=== PATIENT | female | born 1955 | race Caucasian/White ===

== ENCOUNTER 2016-07-10 18:08 | Emergency (ER) | payer MEDICAID, OTHER ==
[~2016-07-10] VITALS: Ht 157.5 cm; Wt 65.0 kg
[2016-07-10 18:13] VITALS: Ht 157.5 cm; Wt 65.0 kg
[2016-07-10] MEDS ORDERED: HYDROCODONE/APAP (5/325) TAB PO ONE (19:30)
--- NOTE | 2016-07-10 21:03 | RADRPT ---
PROCEDURE: XR hip and pelvis. CLINICAL INDICATION: Pain TECHNIQUE: AP and frog lateral views of the right hip were performed. Single frontal view of the p hima was obtained. COMPARISON: There are no similar studies submitted for comparison. FINDINGS: A right total hip replacement is noted. No definite lucency surround the prosthesis. No fracture i s identified.There is normal alignment.No destructive osseous lesion is identified. IMPRESSION: No evidence of acute fracture. RPTAT: HIKT .Jamal Babb MD, MD Date Time Electronically viewed and signed by .Jamal Babb MD, MD on 07/10/2016 21:03 .T/
[2016-07-10] MEDS ORDERED: HYDR-906 PO (21:13)
--- NOTE | 2016-07-10 21:16 | ERD ---
ER Documentation Chief Complaint Date/Time DATE: 07/10/16 TIME: 21:14 Chief Complaint RIGHT HIP PAIN HPI It is a 61-year-old homeless female who presents with right hip pain. She denies any recent trauma but does state she has a history of hip fracture several years ago. She is ambulatory. She has not taken any medications for pain. Pain is currently 7 out of 10 throbbing. Denies any numbness or tingling. Denies any abdominal pain. Denies any urinary symptoms. ROS All systems reviewed and are negative except as per history of present illness. Medications Home Meds Active Scripts Hydrocodone/Acetaminophen ([place] 5-325 Tablet) 1 Each Tablet, 1 EACH PO Q6, #15 TAB Prov:CHAPO LU PA-C 07/10/16 PMhx/Soc History of Surgery: Yes (R hip surgery) Anesthesia Reaction: No Hx Neurological Disorder: No Hx Respiratory Disorders: Yes (COPD) Hx Cardiac Disorders: No Hx Psychiatric Problems: No Hx Miscellaneous Medical Probl: No Hx Alcohol Use: No Hx Substance Use: No Hx Tobacco Use: No FmHx Family History: No diabetes Physical Exam Vitals Vital Signs Date Time Temp Pulse Resp B/P Pulse Ox O2 Delivery O2 Flow Rate FiO2 07/10/16 18:13 98.0 97 20 135/83 99 Physical Exam General: well developed, well nourished, alert, nontoxic, no distress Head: normocephalic, atraumatic, disheveled and malodorous Neck: Supple, nontender, no lymphadenopathy, no midline tenderness Respiratory: Clear to auscaultation bilaterally, speaks in full sentences, no use of accesory muscles or labored breathing, no rales, ronchi, or wheezing Cardiovascular: RRR, No murmurs Back: no midline tenderness, no step offs or bony abnormalities, sensation to light touch in tact Extremities: moving all extremities normally, normal gait, no edema Results 24 hrs Current Medications Medications (Trade) Dose Ordered Sig/Maxi Route PRN Reason Start Time Stop Time Status Last Admin Dose Admin Acetaminophen/ Hydrocodone Bitart ([place] (5/325)) 1 tab ONCE ONCE PO 07/10/16 19:30 07/10/16 19:31 DC 07/10/16 19:12 Procedures/MDM Patient has hip pain. She is neurovascular intact. She has history of hip fracture on the same side. X-ray was negative for any acute fracture. She was given [place] here in the emergency room and discharged with a small amount of [place]. Recommended this patient follow up with her primary care doctor within 48 hours or return to the emergency room for any worsening of symptoms. However this time I do believe there is suitable for outpatient management. I answered all their questions and they agreed with the plan and were discharged home. Departure Diagnosis: Primary Impression: Hip pain Condition: Stable Patient Instructions: Hip Strain Additional Instructions: Call your primary care doctor TOMORROW for an appointment during the next 1-2 days.See the doctor sooner or return here if your condition worsens before your appointment time. CHAPO LU PA-C Jul 10, 2016 21:16
== END 2016-07-10 21:18 | disposition home or self-care (01) ==
LOC: FTE 18:08
DX: M25.551 Pain in right hip (principal); J44.9 Chronic obstructive pulmonary disease, unspecified
CPT/HCPCS: 73510; Z7610; 99283